=== PATIENT | female | born 1950 | race American Indian/Alaskan Native ===

== ENCOUNTER 2019-01-31 22:18 | Emergency (ER) | payer MEDICARE ==
[2019-02-01] MEDS ORDERED: dexAMETHasone 20 MG/5 ML VIAL IM ONE (00:04)
[2019-02-01] MEDS ORDERED: diphenhydrAMINE 25 MG CAP PO ONE (00:04)
[2019-02-01] MEDS ORDERED: FAMOTIDINE 20 MG TAB PO ONE (00:04)
--- NOTE | 2019-02-01 00:10 | Emergency Department Report ---
HPI - General Chief Complaint: Allergic Reaction Time Seen by Provider: 02/01/19 00:03 - HPI HPI: Ms. Fernandez is a 68-year-old female with history of hypertension allergies lisinopril who presents for right upper lip swelling 6 hours P1 week ago for angioedema related to lisinopril patient states she stopped lisinopril now on verapamil and hydrochlorothiazide states she takes medications as prescribed however when outside today and lip started to swell swelling rule out right upper lobe only ther3 is no shortness of breath no stridor no wheezing no fever no chills no hives no palpitations plan treat for allergic reaction ED Past Medical Hx - Past Medical History Previous Medical History?: Yes Hx Hypertension: Yes - Surgical History Past Surgical History?: No - Social History Smoking Status: Never Smoker Substance Use Type: None - Medications Home Medications: Home Medications Medication Instructions Recorded Confirmed Last Taken Type EPINEPHrine [Epipen 2-Antonio] 0.3 mg IM PRN PRN #1 kit 02/01/19 Unknown Rx Famotidine [Pepcid] 20 mg PO BID 7 Days #14 tablet 02/01/19 Unknown Rx diphenhydrAMINE [Benadryl CAP] 25 mg PO Q6HR PRN 7 Days #30 02/01/19 Unknown Rx capsule predniSONE [Deltasone] 40 mg PO QDAY 5 Days #10 tab 02/01/19 Unknown Rx ED Review of Systems ROS: Stated complaint: ALLERGIC REACTION Other details as noted in HPI Constitutional: denies: chills, fever Eyes: denies: eye pain, eye discharge, vision change ENT: other (right upper lip swelling ) Respiratory: denies: cough, shortness of breath, wheezing Cardiovascular: denies: chest pain, palpitations Endocrine: no symptoms reported Gastrointestinal: denies: abdominal pain, nausea, vomiting, diarrhea Genitourinary: denies: urgency, dysuria, discharge Musculoskeletal: denies: back pain, joint swelling, arthralgia Skin: denies: rash, lesions Neurological: denies: headache, weakness, numbness, paresthesias, confusion, vertigo Psychiatric: denies: anxiety, depression Hematological/Lymphatic: denies: easy bleeding, easy bruising Physical Exam - Physical Exam Vital Signs: Vital Signs 01/31/19 22:34 Temperature 99.3 F Pulse Rate 103 H Respiratory 22 Rate Blood Pressure 142/99 O2 Sat by Pulse 99 Oximetry General: Patient appears well and nontoxic respirations even and unlabored patient in no acute distress Physical Exam: ENT TMs are normal no erythema no swelling management patent no swelling pharynx is clear no lesions no exudate uvula midline no stridor no swelling no wheezing mild right upper lip swelling is no dental caries noted no lacerations no symptoms of trauma airway is patent lung sounds are clear bilaterally all lobes heart sounds normal no rub no gallop no bruit ED Course Vital Signs 01/31/19 22:34 Temperature 99.3 F Pulse Rate 103 H Respiratory 22 Rate Blood Pressure 142/99 O2 Sat by Pulse 99 Oximetry ED Medical Decision Making - Medical Decision Making pt advises symptoms are improved tolerating po intake there is no sob no wheezing no stridor, dizziness no n/v , plan decadron, pepcid, benadryl, epipen and epipen teaching, follow up with pcp in 2-3 days return to ed if symptoms worsen. Critical care attestation.: If time is entered above; I have spent that time in minutes in the direct care of this critically ill patient, excluding procedure time. ED Disposition Clinical Impression: Allergic reaction Qualifiers: Encounter type: initial encounter Qualified Code(s): T78.40XA - Allergy, unspec ified, initial encounter Disposition: TO HOME OR SELFCARE Is pt being admited?: No Does the pt Need Aspirin: No Condition: Stable Instructions: Allergies (ED), Anaphylaxis (ED), Epinephrine (Injection) Prescriptions: diphenhydrAMINE [Benadryl CAP] 25 mg PO Q6HR PRN 7 Days #30 capsule PRN Reason: allergies predniSONE [Deltasone] 40 mg PO QDAY 5 Days #10 tab EPINEPHrine [Epipen 2-Antonio] 0.3 mg IM PRN PRN #1 kit PRN Reason: severe allergy symptoms Famotidine [Pepcid] 20 mg PO BID 7 Days #14 tablet Referrals: [facility] [Outside] - 3-5 Days Forms: Work/School Release Form(ED) Time of Disposition: 02:03
[2019-02-01 06:06] VITALS: BP 132/86
== END 2019-02-01 02:15 | disposition home or self-care (01) ==
LOC: ED 22:18
DX: Z79.899 Other long term (current) drug therapy (principal); X58.XXXA Exposure to other specified factors, initial encounter
CPT/HCPCS: 96372; 99282; J1100

== ENCOUNTER 2021-01-22 17:58 | Emergency (ER) | payer MEDICARE ==
--- NOTE | 2021-01-22 18:40 | Emergency Department Report ---
ED Palpitations HPI - General Chief Complaint: Arrhythmia/Palpitations Stated Complaint: ATRIAL FIB/RVR Time Seen by Provider: 01/22/21 18:34 Source: patient, EMS Mode of arrival: Stretcher Limitations: No Limitations - History of Present Illness Initial Comments: 70-year-old female, history of hypertension, diabetes, presents to ED with palpitations. Patient states 1 month ago she began experiencing palpitations. Patient states she was referred to [facility] and was given a Holter monitor. Patient states she followed up with [facility] on 01/03/2021. She was told that they did not find anything with monitoring, but patient was given a prescription for metoprolol 50 mg twice daily. Today, patient states she began to feel palpitations with associated nausea and lightheadedness. Patient states she took her p.m. dose of metoprolol and called 911. EMS reports patient in A. fib with RVR. States heart rate was as high as 175. Patient states she was never told that she had atrial fibrillation by her hired hand. Patient reports her work-up by hired hand included a stress test and echo, which were both normal. MD Complaint: "heart racing", palpitations -: This afternoon Context: occured during rest Associated Symptoms: near-syncope, nausea/vomiting - Related Data Home Medications Medication Instructions Recorded Confirmed Last Taken Albuterol 0.63% NEBS 2 puff 01/22/21 Unknown Triny Allergy 60 mg 01/22/21 Unknown Aspirin 81 mg 01/22/21 Unknown Fluticasone [Flonase] 1 spray NS QDAY 01/22/21 01/22/21 Unknown Hydrochlorothiazide 25 mg 01/22/21 Unknown Metoprolol Tartrate 50 mg 01/22/21 Unknown Procardia Xl 60 mg 01/22/21 Unknown glipiZIDE 5 mg 01/22/21 Unknown Previous Rx's Medication Instructions Recorded Last Taken Type Apixaban [Eliquis] 5 mg PO BID #60 tablet 01/22/21 Unknown Rx Allergies Allergy/AdvReac Type Severity Reaction Status Date / Time No Known Allergies Allergy Verified 01/31/19 22:30 ED Review of Systems ROS: Stated complaint: ATRIAL FIB/RVR Other details as noted in HPI Comment: All other systems reviewed and negative Cardiovascular: palpitations Gastrointestinal: nausea ED Past Medical Hx - Past Medical History Hx Hypertension: Yes - Social History Smoking Status: Never Smoker Substance Use Type: None - Medications Home Medications: Home Medications Medication Instructions Recorded Confirmed Last Taken Type Albuterol 0.63% NEBS 2 puff 01/22/21 Unknown History Triny Allergy 60 mg 01/22/21 Unknown History Apixaban [Eliquis] 5 mg PO BID #60 tablet 01/22/21 Unknown Rx Aspirin 81 mg 01/22/21 Unknown History Fluticasone [Flonase] 1 spray NS QDAY 01/22/21 01/22/21 Unknown History Hydrochlorothiazide 25 mg 01/22/21 Unknown History Metoprolol Tartrate 50 mg 01/22/21 Unknown History Procardia Xl 60 mg 01/22/21 Unknown History glipiZIDE 5 mg 01/22/21 Unknown History ED Physical Exam - General Limitations: No Limitations General appearance: alert, in no apparent distress - Head Head exam: Present: atraumatic, normocephalic - Eye Eye exam: Present: normal appearance, EOMI - ENT ENT exam: Present: mucous membranes moist - Neck Neck exam: Present: normal inspection - Respiratory Respiratory exam: Present: normal lung sounds bilaterally. Absent: respiratory distress - Cardiovascular Cardiovascular Exam: Present: regular rate, irregular rhythm - GI/Abdominal GI/Abdominal exam: Present: soft. Absent: distended, tenderness - Extremities Exam Extremities exam: Present: normal inspection - Neurological Exam Neurological exam: Present: alert, oriented X3 - Psychiatric Psychiatric exam: Present: normal affect, normal mood - Skin Skin exam: Present: warm, dry, intact, normal color ED Course Vital Signs 01/22/21 01/22/21 01/22/21 18:05 18:07 18:16 Temperature 99.1 F Pulse Rate 94 H 120 H 94 H Respiratory 20 16 Rate Blood Pressure 148/88 121/92 [Left] O2 Sat by Pulse 99 99 Oximetry 01/22/21 01/22/21 01/22/21 18:19 18:34 19:37 Temperature 99.1 F 98.5 F Pulse Rate 103 H Respiratory 16 15 Rate Blood Pressure 122/70 [Left] O2 Sat by Pulse 99 97 Oximetry 01/22/21 01/22/21 01/22/21 22:00 22:04 22:59 Temperature 99.1 F Pulse Rate 70 67 Respiratory 12 16 Rate Blood Pressure 103/68 131/78 [Left] O2 Sat by Pulse 100 100 99 Oximetry 01/23/21 00:11 Temperature 98.2 F Pulse Rate 64 Respiratory 15 Rate Blood Pressure 131/77 [Left] O2 Sat by Pulse 99 Oximetry - Consultations Consultation #1: 01/22/21 18:[address] Raygoza, cardiology on-call for [facility]. States if heart rate remains below 100 after observation in the ED, okay to discharge with prescription for Eliquis. Increase beta-ryne dose. Patient to follow-up in office. ED Medical Decision Making - Lab Data Result diagrams: 01/22/21 18:40 01/22/21 18:40 - EKG Data -: EKG Interpreted by Ne EKG shows normal: axis, QRS complexes, ST-T waves Rate: normal - EKG Data Interpretation: no acute changes, other (Atrial fibrillation) - Radiology Data Radiology results: report reviewed, image reviewed - Medical Decision Making 70-year-old female with new onset A. fib. Patient initially in RVR, however heart rate did improve without intervention. Possible heart rate improvement secondary to patient taking her 5 PM dose of her metoprolol. EKG shows A. fib, no ST changes. Troponin negative x2. Chest x-ray unremarkable. I spoke with hired hand, Dr. Raygoza, with [facility]. I informed him that patient reports that she recently had a work-up for palpitations within the past month, which included Holter monitoring, stress test, and echo. Patient reported that this testing was normal, and was placed on metoprolol 50 [address]. Raygoza, if heart rate remains below 100 during ED observation okay to dischar ge home on Eliquis and advised to follow-up in the office. He also advised increase in patient's metoprolol, however patient's heart rate sometimes in the 50s, do not feel comfortable increasing her dosage. We will leave that to the hired hand when she visits in office. Patient observed in the ED for 6 hours. There is a documented heart rate of 120, chest after patient arrived. However, patient has mostly had a normal heart rate, between 60 and 90. Patient given 1 dose of Eliquis here in the ED. Will discharge at this time with prescription for Eliquis. Vital signs are currently BP 134/98, HR 60. Patient advised to follow-up with cardiology tomorrow. Return precautions given. - Differential Diagnosis Arrhythmia, ACS, CHF Critical care attestation.: If time is entered above; I have spent that time in minutes in the direct care of this critically ill patient, excluding procedure time. ED Disposition Clinical Impression: New onset atrial fibrillation Disposition: HOME / SELF CARE / HOMELESS Is pt being admited?: No Condition: Stable Instructions: Atrial Fibrillation Prescriptions: Apixaban [Eliquis] 5 mg PO BID #60 tablet Ref[facility]: [email or web address] [Provider Group] - 01/23/21 AP RODRIGUEZ MD [Staff Physician] - 01/23/21 Time of Disposition: 23:51
--- NOTE | 2021-01-22 19:12 | XRay Report ---
CHEST 1 VIEW 01/22/2021 6:05 PM INDICATION / CLINICAL INFORMATION: palpitations. COMPARISON: None available. FINDINGS: SUPPORT DEVICES: None. HEART / MEDIASTINUM: No significant abnormality. LUNGS / PLEURA: No significant pulmonary or pleural abnormality. No pneumothorax. ADDITIONAL FINDINGS: No significant additional findings. IMPRESSION: 1. No acute findings. Signer Name: Holden Angel MD Signed: 01/22/2021 7:07 PM Workstation Name: [id number]
[2021-01-22 19:14] LABS: Basophils % (Auto) 0.4 % (0.0-1.8); Eosinophils # (Auto) 0.1 K/mm3 (0.0-0.4); Eosinophils % (Auto) 0.9 % (0.0-4.3); Hematocrit 40.3 % (30.3-42.9); Hemoglobin 12.8 gm/dl (10.1-14.3); Lymphocytes # (Auto) 2.5 K/mm3 (1.2-5.4); Mean Corpuscular HGB Conc 32 % (30-34); Mean Corpuscular Volume 88 fl (79-97); Monocytes # (Auto) 0.4 K/mm3 (0.0-0.8); Platelet Count 325 K/mm3 (140-440); Red Blood Count 4.61 M/mm3 (3.65-5.03); Red Cell Distribution Width 13.6 % (13.2-15.2)
[2021-01-22 19:39] LABS: INR 0.9 (0.87-1.13); Partial Thromboplastin Time 25.9 Sec. (24.2-36.6)
[2021-01-22 20:24] LABS: Blood Urea Nitrogen 11 mg/dL (7-17); Calcium 9.7 mg/dL (8.4-10.2); Hemolysis Index 26
[2021-01-22 20:27] LABS: BUN/Creatinine Ratio 16
[2021-01-22] MEDS ORDERED: APIXABAN 5 MG TAB PO NR (22:54)
[2021-01-23 00:12] VITALS: BP 131/77
--- NOTE | 2021-01-27 14:22 | Electrocardiograph Report ---
[facility] Test Date: 2021-01-22 Test Time: 18:08:31 Pat Name: CHAD GARRIDO Department: Room: Gender: F Sports Journalist: LAURIE : 1950 Requested By: MAHENDRA WILDER Order Number: [id number] Reading MD: Aura Willis Measurements Intervals [place] Rate: 94 P: MS: QRS: 17 QRSD: 83 T: 49 QT: 361 QTc: 452 Interpretive Statements Atrial fibrillation Nonspecific ST changes No previous ECG available for comparison Electronically Signed On 01-27-2021 14:21:37 EDT by Aura Willis
== END 2021-01-23 00:28 | disposition home or self-care (01) ==
LOC: ED 17:58
DX: I48.91 Unspecified atrial fibrillation (principal); I10 Essential (primary) hypertension
CPT/HCPCS: 36415; 71045; 80048; 82962; 84484; 85025; 85610; 85730; 93005; 99284

== ENCOUNTER 2021-01-23 23:01 | Inpatient (IN) | payer MEDICARE ==
[2021-01-24] MEDS ORDERED: ASPIRIN 325 MG TAB PO ONE (01:21)
--- NOTE | 2021-01-24 01:32 | Event Note ---
ED Screening Note Date of service: 01/24/21 Time: 01:30 ED Screening Note: The patient is a 70-year-old -[place] female with a history of A. fib, hypertension and [id number] diabetes who presents to the ED with complaint of acute onset persistent palpitations, chest pressure and shortness of breath for the last 12 hours. Patient was initially evaluated in this ED for similar symptoms 24 hours ago and was discharged home. Patient states that she has a scheduled appointment with a mobile solutions architect at [facility] on 03 February 2021 but because of the persistent symptoms of palpitations she decided come to the ED for reevaluation. Patient denies dizziness, syncope, fall, diaphoresis, nausea and vomiting, cough, headache, fever and chills or abdominal pain and diarrhea. This initial assessment/diagnostic orders/clinical plan/treatment(s) is/are subject to change based on patients health status, clinical progression and re- assessment by fellow clinical providers in the ED. Further treatment and workup at subsequent clinical providers discretion. Patient/guardian urged not to elope from the ED as their condition may be serious if not clinically assessed and managed. Initial orders include: CBC, CMP, EKG, chest x-ray, troponin,
--- NOTE | 2021-01-24 01:51 | XRay Report ---
CHEST 1 VIEW INDICATION / CLINICAL INFORMATION: chest pain, palpitations STUDY TIME: 142 COMPARISON: 01/22/2021 FINDINGS: SUPPORT DEVICES: None HEART / MEDIASTINUM: Mild cardiomegaly is again seen LUNGS / PLEURA: No significant acute pulmonary or pleural abnormality. No pneumothorax. ADDITIONAL FINDINGS: No significant additional findings. IMPRESSION: No significant acute abnormality Signer Name: Isidoro Moreno MD Signed: 01/24/2021 1:47 AM Workstation Name: [id number]
[2021-01-24 01:59] LABS: Basophils # (Auto) 0.1 K/mm3 (0.0-0.1); Basophils % (Auto) 0.6 % (0.0-1.8); Eosinophils # (Auto) 0.1 K/mm3 (0.0-0.4); Eosinophils % (Auto) 1.2 % (0.0-4.3); Hematocrit 39.1 % (30.3-42.9); Hemoglobin 12.8 gm/dl (10.1-14.3); Lymphocytes % (Auto) 46.1 % (13.4-35.0); Mean Corpuscular HGB Conc 33 % (30-34); Mean Corpuscular Volume 85 fl (79-97); Monocytes # (Auto) 0.5 K/mm3 (0.0-0.8); Monocytes % (Auto) 6.1 % (0.0-7.3); Platelet Count 364 K/mm3 (140-440); Red Cell Distribution Width 13.2 % (13.2-15.2)
[2021-01-24 02:26] LABS: Alanine Aminotransferase 21 units/L (7-56); Albumin 4.6 g/dL (3.9-5); Blood Urea Nitrogen 13 mg/dL (7-17); Calcium 10.2 mg/dL (8.4-10.2); Hemolysis Index 3
[2021-01-24 02:30] LABS: BUN/Creatinine Ratio 19
--- NOTE | 2021-01-24 02:33 | Emergency Department Report ---
ED Chest Pain HPI - General Chief Complaint: High BP Stated Complaint: HBP PUI?: No Time Seen by Provider: 01/24/21 02:29 Source: patient Mode of arrival: Ambulatory Limitations: No Limitations - History of Present Illness Initial Comments: Patient is a 70-year-old female who presents emergency room with complaints of chest pain, shortness of breath and palpitations. Patient also complains of her blood pressure going up. Patient states she was recently diagnosed with A. fib and placed on metoprolol, Procardia and Eliquis. Patient states she is taking all of her medications. Patient states that her blood pressure continues to go up and her palpitations are becoming more frequent. Patient states that her chest pain is better with rest and worse with exertion. Patient dates her shortness of breath better with rest and worse with exertion. Patient states she is just not feeling right. Patient denies recent travel. Patient denies recent international travel. Patient denies exposure to the novel coronavirus. Patient denies sick contacts. Patient denies fever and chills. Patient denies cough. Patient denies diarrhea. Patient denies coming in contact with anybody with symptoms of the novel coronavirus. MD Complaint: chest pain -: Sudden Onset: during rest Pain Location: substernal, left chest Pain Radiation: none Severity scale (0 -10): 5 Quality: pressure Improves With: rest Worsens With: exertion re: dyspnea. denies: nausea, vomting, diaphoresis Other Symptoms: palpitations. denies: cough, fever, syncope, rash, acid taste in mouth, leg swelling, burping Aspirin use within the Past 7 Days: (1) Yes - Related Data On Oral Contraceptives: No Home Medications Medication Instructions Recorded Confirmed Last Taken Albuterol 0.63% NEBS 2 puff 01/22/21 Unknown Triny Allergy 60 mg 01/22/21 Unknown Aspirin 81 mg 01/22/21 Unknown Fluticasone [Flonase] 1 spray NS QDAY 01/22/21 01/22/21 Unknown Hydrochlorothiazide 25 mg 01/22/21 Unknown Metoprolol Tartrate 50 mg 01/22/21 Unknown Procardia Xl 60 mg 01/22/21 Unknown glipiZIDE 5 mg 01/22/21 Unknown Previous Rx's Medication Instructions Recorded Last Taken Type Apixaban [Eliquis] 5 mg PO BID #60 tablet 01/22/21 Unknown Rx Allergies Allergy/AdvReac Type Severity Reaction Status Date / Time No Known Allergies Allergy Verified 01/31/19 22:30 Heart Score - HEART Score History: Moderately suspicious EKG: Non-specific Age: > 65 Risk factors: > 3 risk factors or hx of atherosclerotic disease Troponin: < normal limit HEART Score: 6 - EKG Read Time Time EKG Completed: 03:12 EKG Read Time: 03:15 ED Review of Systems ROS: Stated complaint: HBP Other details as noted in HPI Constitutional: denies: chills, fever Eyes: denies: eye pain, eye discharge, vision change ENT: denies: ear pain, throat pain Respiratory: see HPI, shortness of breath. denies: cough, wheezing Cardiovascular: as per HPI, chest pain, palpitations Endocrine: no symptoms reported Gastrointestinal: denies: abdominal pain, nausea, diarrhea Genitourinary: denies: urgency, dysuria, discharge Musculoskeletal: denies: back pain, joint swelling, arthralgia Skin: denies: rash, lesions Neurological: denies: headache, weakness, paresthesias Psychiatric: denies: anxiety, depression Hematological/Lymphatic: denies: easy bleeding, easy bruising ED Past Medical Hx - Past Medical History Previous Medical History?: Yes Hx Hypertension: Yes Hx Diabetes: Yes - Surgical History Past Surgical History?: No - Family History Family history: no significant - Social History Smoking Status: Never Smoker Substance Use Type: None - Medications Home Medications: Home Medications Medication Instructions Recorded Confirmed Last Taken Type Albuterol 0.63% NEBS 2 puff 01/22/21 Unknown History Triny Allergy 60 mg 01/22/21 Unknown History Apixaban [Eliquis] 5 mg PO BID #60 tablet 01/22/21 Unknown Rx Aspirin 81 mg 01/22/21 Unknown History Fluticasone [Flonase] 1 spray NS QDAY 01/22/21 01/22/21 Unknown History Hydrochlorothiazide 25 mg 01/22/21 Unknown History Metoprolol Tartrate 50 mg 01/22/21 Unknown History Procardia Xl 60 mg 01/22/21 Unknown History glipiZIDE 5 mg 01/22/21 Unknown History ED Physical Exam - General Limitations: No Limitations General appearance: alert, in no apparent distress - Head Head exam: Present: atraumatic, normocephalic - Eye Eye exam: Present: normal appearance - ENT ENT exam: Present: mucous membranes moist - Neck Neck exam: Present: normal inspection - Respiratory Respiratory exam: Present: normal lung sounds bilaterally. Absent: respiratory distress, wheezes, rales - Cardiovascular Cardiovascular Exam: Present: regular rate, normal rhythm, normal heart sounds. Absent: systolic murmur, diastolic murmur, rubs, gallop - GI/Abdominal GI/Abdominal exam: Present: soft, normal bowel sounds - Extremities Exam Extremities exam: Present: normal inspection - Back Exam Back exam: Present: normal inspection - Neurological Exam Neurological exam: Present: alert, oriented X3 - Psychiatric Psychiatric exam: Present: normal affect, normal mood - Skin Skin exam: Present: warm, dry, intact, normal color. Absent: rash ED Course Vital Signs 01/23/21 01/24/21 01/24/21 23:19 02:38 02:46 Temperature 99.3 F Pulse Rate 79 71 72 Respiratory 18 12 13 Rate Blood Pressure 169/113 O2 Sat by Pulse 96 100 99 Oximetry 01/24/21 01/24/21 01/24/21 03:00 03:16 03:30 Temperature Pulse Rate 61 60 59 L Respiratory 13 20 11 L Rate Blood Pressure 142/93 142/93 142/93 O2 Sat by Pulse 100 100 100 Oximetry 01/24/21 01/24/21 01/24/21 03:46 04:00 04:16 Temperature Pulse Rate 66 69 68 Respiratory 11 L 12 11 L Rate Blood Pressure 142/93 146/73 146/73 O2 Sat by Pulse 99 99 99 Oximetry 01/24/21 04:30 Temperature Pulse Rate 75 Respiratory 13 Rate Blood Pressure 146/73 O2 Sat by Pulse 100 Oximetry - Reevaluation(s) Reevaluation #1: I discussed all results with patient. I discussed plan of care with patient. Patient agrees with plan of care and admission. Patient to be admitted to the hospitalist service. 01/24/21 04:41 - Consultations Consultation #1: Hospitalist consulted for admission. Hospitalist to admit patient. 01/24/21 04:41 BRITTNEY score - Brittney Score Age > 65: (1) Yes Aspirin use within the Past 7 Days: (1) Yes 3 or more CAD Risk Factors: (1) Yes 2 or more Angina events in past 24 hrs: (0) No Known CAD with more than 50% Stenosis: (0) No Elevated Cardiac Markers: (0) No ST Deviation Greater than 0.5mm: (0) No BRITTNEY Score: 3 ED Medical Decision Making - Lab Data Result diagrams: 01/24/21 01:29 01/24/21 01:29 - EKG Data -: EKG Interpreted by Me EKG shows normal: axis, intervals, QRS complexes, ST-T waves Rate: normal - EKG Data Interpretation: other (A. fib) - Radiology Data Radiology results: report reviewed, image reviewed interpreted by me: Chest x-ray: No pneumonia, no pneumothorax, no foreign body, no osseous findings, no acute findings CHEST 1 VIEW INDICATION / CLINICAL INFORMATION: chest pain, palpitations STUDY TIME: 142 COMPARISON: 01/22/2021 FINDINGS: SUPPORT DEVICES: None HEART / MEDIASTINUM: Mild cardiomegaly is again seen LUNGS / PLEURA: No significant acute pulmonary or pleural abnormality. No pneumothorax. ADDITIONAL FINDINGS: No significant additional findings. IMPRESSION: No significant acute abnormality - Medical Decision Making Patient is a 70-year-old female who presents emergency room with complaints of chest pain, shortness of breath and palpitations. Patient states that overall he does not feel well. Patient had a recent diagnosis of A. fib and was placed on metoprolol Eliquis and Procardia. Patient symptoms are worsening so the patient came emergency room for evaluation. Patient had labs done which were essentially unremarkable. Patient had a chest x-ray which was negative for acute findings. Patient's x-rays show cardiomegaly. I personally reviewed the chest x-ray. Patient had EKG done which showed A. fib but no other abnorm alities. Personally reviewed the EKG. Patient admitted to the hospitalist service for further evaluation treatment. Critical care time documented due to the multiple reassessments, prolonged time at the bedside, interpretation of diagnostics and labs. - Differential Diagnosis ACS, chest pain, shortness of breath, palpitations Critical Care Time: Yes Critical care time in (mins) excluding proc time.: 35 Critical care attestation.: If time is entered above; I have spent that time in minutes in the direct care of this critically ill patient, excluding procedure time. Critical Care Time: 35 minutes ED Disposition Clinical Impression: Palpitations, Shortness of breath Chest pain Qualifiers: Chest pain type: unspecified Qualified Code(s): R07.9 - Chest pain, unspecified A-fib Qualifiers: Atrial fibrillation type: unspecified Qualified Code(s): I48.91 - Unspecified atrial fibrillation Disposition: 09 ADMITTED INPATIENT Is pt being admited?: Yes Does the pt Need Aspirin: No Condition: Critical Time of Disposition: 04:43
[2021-01-24] MEDS ORDERED: DEXTROSE 50% IN WATER (25GM) 50 ML SYRINGE IV PRN ×2 (07:40→09:30)
[2021-01-24] MEDS ORDERED: ACETAMINOPHEN 325 MG TAB PO PRN ×2 (07:40→09:30)
--- NOTE | 2021-01-24 07:52 | History and Physical Report ---
History of Present Illness Date of examination: 01/24/21 Date of admission: 01/24/21 04:43 Chief complaint: Chest pain History of present illness: 70-year-old -[place] female with known history of hypertension and diabetes mellitus presents to the emergency room today complaining of chest pain, shortness of breath and palpitations which has been ongoing for the past few hours. Patient was recently diagnosed with A. fib and had been placed on metoprolol, Procardia and Eliquis and indicates she has been compliant with her medications. Symptoms are said to be worse on exertion and gets better upon resting. She follows up with [facility]. Hair Salon Manager is Dr. Gunderson. She denies any fever or chills, no nausea or vomiting and no abdominal pain. Nicholas gonzalez denies any sick contacts and no recent travel. Denies any contact with anyone with COVID-19. Patient has not been fully vaccinated against COVID-19. Work-up in the emergency room today, EKG reveals atrial fibrillation. Chest x-ray shows no significant findings Labs: Troponins were negative Patient admitted with chest pain evaluation. Past History Past Medical History: diabetes, hypertension Past Surgical History: No surgical history Social history: no significant social history Family history: no significant family history Medications and Allergies Allergies Allergy/AdvReac Type Severity Reaction Status Date / Time No Known Allergies Allergy Verified 01/31/19 22:30 Home Medications Medication Instructions Recorded Confirmed Last Taken Type Albuterol 0.63% NEBS 2 puff 01/22/21 Unknown History Triny Allergy 60 mg 01/22/21 Unknown History Apixaban [Eliquis] 5 mg PO BID #60 tablet 01/22/21 Unknown Rx Aspirin 81 mg 01/22/21 Unknown History Fluticasone [Flonase] 1 spray NS QDAY 01/22/21 01/22/21 Unknown History Hydrochlorothiazide 25 mg 01/22/21 Unknown History Metoprolol Tartrate 50 mg 01/22/21 Unknown History Procardia Xl 60 mg 01/22/21 Unknown History glipiZIDE 5 mg 01/22/21 Unknown History Active Meds: Active Medications Acetaminophen (Acetaminophen 325 Mg Tab) 650 mg PO Q4H PRN PRN Reason: Pain MILD(1-3)/Fever >100.5/PATHAK Acetaminophen (Acetaminophen 325 Mg Tab) 650 mg PO Q6H PRN PRN Reason: Pain, Mild (1-3) Aspirin (Aspirin Ec 325 Mg Tab) 325 mg PO QDAY ETHEL Dextrose (Dextrose 50% In Water (25gm) 50 Ml Syringe) 50 ml IV Q30MIN PRN; Protocol PRN Reason: Hypoglycemia Dextrose (Dextrose 50% In Water (25gm) 50 Ml Syringe) 50 ml IV Q30MIN PRN; Protocol PRN Reason: Hypoglycemia Heparin Sodium (Porcine) (Heparin 5,000 Unit/1 Ml Vial) 5,000 unit SUB-Q Q8HR ETHEL Insulin Human Lispro (Insulin Lispro 100 Unit/Ml) 0 unit SUB-Q ACHS ETHEL; Protocol Magnesium Hydroxide (Magnesium Hydroxide (Mom) Oral Liqd Udc) 30 ml PO Q4H PRN PRN Reason: Constipation Morphine Sulfate (Morphine 2 Mg/1 Ml Inj) 2 mg IV Q4H PRN PRN Reason: Pain, Moderate (4-6) Morphine Sulfate (Morphine 4 Mg/1 Ml Inj) 4 mg IV Q4H PRN PRN Reason: Pain , Severe (7-10) Nitroglycerin (Nitroglycerin 0.4 Mg Tab Subl) 0.4 mg SL Q5M PRN PRN Reason: Chest Pain Ondansetron HCl (Ondansetron 4 Mg/2 Ml Inj) 4 mg IV Q8H PRN PRN Reason: Nausea And Vomiting Sodium Chloride (Sodium Chloride 0.9% 10 Ml Flush Syringe) 10 ml IV BID ETHEL Sodium Chloride (Sodium Chloride 0.9% 10 Ml Flush Syringe) 10 ml IV PRN PRN PRN Reason: LINE FLUSH Sodium Chloride (Sodium Chloride 0.9% 10 Ml Flush Syringe) 10 ml IV PRN PRN PRN Reason: LINE FLUSH Tramadol HCl (Tramadol 50 Mg Tab) 50 mg PO Q6H PRN PRN Reason: Pain, Moderate (4-6) Review of Systems Constitutional: no fever, no chills Ears, nose, mouth and throat: no nasal congestion, no sore throat Cardiovascular: chest pain, palpitations, no orthopnea Respiratory: shortness of breath, no cough Gastrointestinal: no abdominal pain, no nausea, no vomiting, no diarrhea Genitourinary Female: no pelvic pain, no flank pain, no dysuria, no hematuria Musculoskeletal: no neck pain, no low back pain Integumentary: no rash, no pruritis Neurological: no headaches, no confusion Psychiatric: no anxiety, no depression Endocrine: no polyphagia, no polydipsia, no polyuria, no nocturia Exam - Constitutional Vitals: Temp Pulse Resp BP Pulse Ox 99.3 F 75 13 146/73 100 01/23/21 23:19 01/24/21 04:30 01/24/21 04:30 01/24/21 04:30 01/24/21 04:30 General appearance: Present: no acute distress, well-nourished - EENT Eyes: Present: PERRL, EOM intact. Absent: scleral icterus ENT: hearing intact, clear oral mucosa, dentition normal - Neck Neck: Present: supple, normal ROM - Respiratory Respiratory effort: normal Respiratory: bilateral: CTA - Cardiovascular Rhythm: irregularly irregular Heart Sounds: Present: S1 & S2. Absent: gallop, systolic murmur, diastolic m urmur, rub, click - Extremities Extremities: no ischemia, pulses intact, pulses symmetrical, No edema, normal temperature, Full ROM Peripheral Pulses: within normal limits - Abdominal General gastrointestinal: Present: soft, non-tender, non-distended, normal bowel sounds. Absent: mass - Integumentary Integumentary: Present: clear, warm, dry, normal turgor. Absent: rash - Musculoskeletal Musculoskeletal: strength equal bilaterally - Psychiatric Psychiatric: appropriate mood/affect, intact judgment & insight, memory intact, cooperative - Neurologic Neurologic: CNII-XII intact, no focal deficits, moves all extremities HEART Score - HEART Score History: Slightly suspicious EKG: Non-specific Age: > 65 Risk factors: > 3 risk factors or hx of atherosclerotic disease Troponin: Troponin T < 0.010 ng/mL (0.00-0.029) 01/24/21 05:00 Troponin: < normal limit HEART Score: 5 Results - Labs CBC & Chem 7: 01/24/21 01:29 01/24/21 01:29 Labs: Abnormal lab results 01/24/21 01/24/21 Range/Units 01: 01:29 Lymph % (Auto) 46.1 H (13.4-35.0) % Glucose 124 H (65-100) mg/dL Assessment and Plan - Patient Problems (1) Chest pain Current Visit: Yes Status: Acute Qualifiers: Chest pain type: unspecified Qualified Code(s): R07.9 - Chest pain, unspecified Plan to address problem: Patient admitted and placed on telemetry. Chest pain probably is secondary to the palpitations. We will check serial cardiac enzymes. We will place on daily aspirin. Will await further evaluation by cardiology. (2) A-fib Current Visit: Yes Status: Acute Qualifiers: Atrial fibrillation type: unspecified Qualified Code(s): I48.91 - Unspecified atrial fibrillation Plan to address problem: Patient recently diagnosed with A. fib. Patient currently on beta-ryne and anticoagulation with Eliquis. Await further evaluation by plastic straightening roll operator. (3) Diabetes mellitus Current Visit: Yes Status: Acute Plan to address problem: We will monitor Accu-Cheks closely. (4) DVT prophylaxis Current Visit: Yes Status: Acute Plan to address problem: Patient currently on anticoagulation with Eliquis. (5) Full code status Current Visit: Yes Status: Acute Plan to address problem: Patient is full code.
[2021-01-24 08:10] LABS: Basophils % (Auto) 0.8 % (0.0-1.8); Eosinophils # (Auto) 0.1 K/mm3 (0.0-0.4); Eosinophils % (Auto) 1.2 % (0.0-4.3); Hematocrit 38.8 % (30.3-42.9); Hemoglobin 12.8 gm/dl (10.1-14.3); Lymphocytes # (Auto) 2.5 K/mm3 (1.2-5.4); Lymphocytes % (Auto) 38.8 % (13.4-35.0); Mean Corpuscular HGB Conc 33 % (30-34); Mean Corpuscular Volume 86 fl (79-97); Monocytes # (Auto) 0.4 K/mm3 (0.0-0.8); Platelet Count 318 K/mm3 (140-440); Red Blood Count 4.54 M/mm3 (3.65-5.03); Red Cell Distribution Width 13.3 % (13.2-15.2)
[2021-01-24 08:27] LABS: Blood Urea Nitrogen 12 mg/dL (7-17); Calcium 9.8 mg/dL (8.4-10.2); Hemolysis Index 5
[2021-01-24 08:30] LABS: BUN/Creatinine Ratio 20
[2021-01-24] MEDS ORDERED: MAGNESIUM HYDROXIDE (MOM) ORAL LIQD UDC PO PRN (09:00)
[2021-01-24] MEDS ORDERED: ONDANSETRON 4 MG/2 ML INJ IV PRN (09:00)
[2021-01-24] MEDS ORDERED: MORPHINE 4 MG/1 ML INJ IV PRN (09:30)
[2021-01-24] MEDS ORDERED: NITROGLYCERIN 0.4 MG TAB SUBL SL PRN (09:30)
[2021-01-24] MEDS ORDERED: MORPHINE 2 MG/1 ML INJ IV PRN (09:30)
[2021-01-24] MEDS ORDERED: NON-FORMULARY EACH (Apixaban 5 MG Tablet) PO SCH (10:00)
[2021-01-24] MEDS ORDERED: traMADol 50 MG TAB PO PRN (10:00)
[2021-01-24] MEDS ORDERED: AMIODARONE 150 MG in DEXTROSE 5% IN WATER 100 ML IV ONE (10:17)
--- NOTE | 2021-01-24 10:23 | Consultation ---
History of Present Illness Consult date: 01/24/21 Consult reason: atrial fibrillation History of present illness: The patient is a 70-year-old woman who has undergone extensive outpatient cardiac work-up in recent weeks for intermittent palpitations. She had a thallium stress test, echocardiogram and event monitor all of which were negative. She was placed on metoprolol by her outpatient reservation clerk. However, her symptoms of intermittent palpitations persisted culminating in 2 emergency room visits over the last 48 hours. On the current visit, she was found to have atrial fibrillation, initially with a well-controlled ventricular rate, currently heart rate is 130s. The twelve-lead EKG shows no acute ischemic changes. The patient otherwise has no chest pain, no unusual shortness of breath, no edema and has not suffered syncope. Chest x-ray on this presentation shows a normal-sized cardiac silhouette and clear lungs. Past History Past Medical History: diabetes, hypertension Past Surgical History: No surgical history Social history: no significant social history Family history: no significant family history Medications and Allergies Allergies Allergy/AdvReac Type Severity Reaction Status Date / Time No Known Allergies Allergy Verified 01/31/19 22:30 Home Medications Medication Instructions Recorded Confirmed Last Taken Type Albuterol 0.63% NEBS 2 puff 01/22/21 Unknown History Triny Allergy 60 mg 01/22/21 Unknown History Apixaban [Eliquis] 5 mg PO BID #60 tablet 01/22/21 Unknown Rx Aspirin 81 mg 01/22/21 Unknown History Fluticasone [Flonase] 1 spray NS QDAY 01/22/21 01/22/21 Unknown History Hydrochlorothiazide 25 mg 01/22/21 Unknown History Metoprolol Tartrate 50 mg 01/22/21 Unknown History Procardia Xl 60 mg 01/22/21 Unknown History glipiZIDE 5 mg 01/22/21 Unknown History Active Meds: Active Medications Acetaminophen (Acetaminophen 325 Mg Tab) 650 mg PO Q4H PRN PRN Reason: Pain MILD(1-3)/Fever >100.5/PATHAK Apixaban (Apixaban 5 Mg Tab) 5 mg PO Q12HR ETHEL; Protocol Dextrose (Dextrose 50% In Water (25gm) 50 Ml Syringe) 50 ml IV Q30MIN PRN; Protocol PRN Reason: Hypoglycemia Insulin Human Lispro (Insulin Lispro 100 Unit/Ml) 0 unit SUB-Q ACHS ETHEL; Protocol Magnesium Hydroxide (Magnesium Hydroxide (Mom) Oral Liqd Udc) 30 ml PO Q4H PRN PRN Reason: Constipation Morphine Sulfate (Morphine 2 Mg/1 Ml Inj) 2 mg IV Q4H PRN PRN Reason: Pain, Moderate (4-6) Morphine Sulfate (Morphine 4 Mg/1 Ml Inj) 4 mg IV Q4H PRN PRN Reason: Pain , Severe (7-10) Nitroglycerin (Nitroglycerin 0.4 Mg Tab Subl) 0.4 mg SL Q5M PRN PRN Reason: Chest Pain Ondansetron HCl (Ondansetron 4 Mg/2 Ml Inj) 4 mg IV Q8H PRN PRN Reason: Nausea And Vomiting Sodium Chloride (Sodium Chloride 0.9% 10 Ml Flush Syringe) 10 ml IV BID ETHEL Sodium Chloride (Sodium Chloride 0.9% 10 Ml Flush Syringe) 10 ml IV PRN PRN PRN Reason: LINE FLUSH Tramadol HCl (Tramadol 50 Mg Tab) 50 mg PO Q6H PRN PRN Reason: Pain, Moderate (4-6) Review of Systems Cardiovascular: palpitations, rapid/irregular heart beat, lightheadedness, no chest pain, no orthopnea, no edema, no syncope, no shortness of breath Physical Examination Vital Signs Temp Pulse Resp BP Pulse Ox 99.3 F 79 18 169/113 96 01/23/21 23:19 01/23/21 23:19 01/23/21 23:19 01/23/21 23:19 01/23/21 23:19 General appearance: no acute distress HEENT: Positive: PERRL Neck: Positive: neck supple Cardiac: Positive: irregularly irregular Lungs: Positive: clear to auscultation Neuro: Positive: Grossly Intact Abdomen: Positive: Soft Female genitourinary: deferred Skin: Positive: Clear Extremities: Absent: edema Results 01/24/21 07:54 01/24/21 07:54 Cardiac Enzymes 01/24/21 Range/Units 01: AST 18 (5-40) units/L CBC 01/24/21 01/24/21 Range/Units 01:29 07:54 WBC 8.7 6.3 (4.5-11.0) K/mm3 RBC 4.60 4.54 (3.65-5.03) M/mm3 Hgb 12.8 12.8 (10.1-14.3) gm/dl Hct 39.1 38.8 (30.3-42.9) % Plt Count 364 318 (140-440) K/mm3 Lymph # (Auto) 4.0 2.5 (1.2-5.4) K/mm3 [place] # (Auto) 0.5 0.4 (0.0-0.8) K/mm3 Eos # (Auto) 0.1 0.1 (0.0-0.4) K/mm3 Baso # (Auto) 0.1 0.0 (0.0-0.1) K/mm3 Comprehensive Metabolic Panel 01/24/21 01/24/21 Range/Units 01:29 07:54 Sodium 142 141 (137-145) mmol/L Potassium 4.3 3.9 (3.6-5.0) mmol/L Chloride 106.2 104.9 (98-107) mmol/L Carbon Dioxide 24 26 (22-30) mmol/L BUN 13 12 (7-17) mg/dL Creatinine 0.7 0.6 (0.6-1.2) mg/dL Glucose 124 H 125 H (65-100) mg/dL Calcium 10.2 9.8 (8.4-10.2) mg/dL AST 18 (5-40) units/L ALT 21 (7-56) units/L Alkaline Phosphatase 98 (35-129) units/L Total Protein 7.5 (6.3-8.2) g/dL Albumin 4.6 (3.9-5) g/dL EKG interpretations - Telemetry EKG Rhythm: Atrial Fibrillation Assessment and Plan - Patient Problems (1) Paroxysmal atrial fibrillation Current Visit: Yes Status: Acute Plan to address problem: Patient has palpitations due to paroxysmal atrial fibrillation. Recent outpatient cardiac work-up including echocardiogram and thallium stress test were negative. Atrial fibrillation has been recurrent despite metoprolol therapy. We will initiate amiodarone for more optimal atrial fibrillation suppression. We will also start the patient on oral anticoagulation therapy with Eliquis. If atrial fibrillation persists despite amiodarone therapy, patient may need DC cardioversion.
[2021-01-24] MEDS: INSULIN LISPRO 100 UNIT/ML SUB-Q SCH ×3 (12:08→22:50)
[2021-01-24] MEDS ORDERED: HEPARIN 5,000 UNIT/1 ML VIAL SUB-Q SCH (14:00)
[2021-01-24] MEDS: APIXABAN 5 MG TAB PO SCH ×2 (22:50)
[2021-01-24] MEDS: AMIODARONE 200 MG TAB PO SCH (22:50)
[2021-01-25 06:19] LABS: INR 1.15 (0.87-1.13)
[2021-01-25 06:29] LABS: Blood Urea Nitrogen 18 mg/dL (7-17); Calcium 8.9 mg/dL (8.4-10.2); Hemolysis Index 3
[2021-01-25 06:36] LABS: BUN/Creatinine Ratio 26
--- NOTE | 2021-01-25 07:32 | Event Note ---
Date: 01/24/21 Patient started on IV amiodarone and oral Eliquis for paroxysmal atrial fibrillation Recent stress test was negative If heart rate is controlled patient can be discharged on oral amiodarone and oral Eliquis No need for Lexiscan
[2021-01-25] MEDS: INSULIN LISPRO 100 UNIT/ML SUB-Q SCH ×4 (08:06→22:07)
[2021-01-25] MEDS ORDERED: ASPIRIN EC 325 MG TAB PO SCH (10:00)
[2021-01-25] MEDS: APIXABAN 5 MG TAB PO SCH ×2 (10:05→21:14)
[2021-01-25] MEDS: AMIODARONE 200 MG TAB PO SCH ×2 (10:05→20:08)
[2021-01-25] MEDS: ASPIRIN EC 81 MG TAB PO SCH (10:06)
--- NOTE | 2021-01-25 10:37 | Progress Note ---
Assessment and Plan 1. Paroxysmal atrial fibrillation 2. Essential hypertension 3. Type 2 diabetes mellitus TSH normal Plan. Patient is currently stable heart rhythm however remains in atrial fibrillation with a rapid ventricular response. Patient's amiodarone will be increased to 400 mg twice a day we will add metoprolol 25 mg twice a day Subjective Date of service: 01/25/21 Interval history: No cardiac symptoms Objective Vital Signs Temp Pulse Pulse Pulse Resp BP Pulse Ox 01/25/21 07:49 98.7 F 78 18 134/91 98 01/25/21 05:59 98.8 F 87 18 142/81 99 01/25/21 00:17 98.3 F 88 18 124/78 98 01/24/21 23:00 88 01/24/21 22:00 77 77 18 99 01/24/21 20:56 97.8 F 77 18 134/95 99 01/24/21 16:34 98.5 F 106 H 20 150/95 98 01/24/21 16:00 128/65 100 01/24/21 15:50 128/65 100 01/24/21 15:40 128/65 100 01/24/21 15:30 128/65 100 01/24/21 15:20 128/65 100 01/24/21 15:10 128/65 99 01/24/21 15:00 128/65 100 01/24/21 14:46 103 H 17 176/150 100 01/24/21 14:32 139 H 176/150 100 01/24/21 14:16 117 H 18 176/150 99 01/24/21 14:00 97 H 14 176/150 99 01/24/21 13:46 91 H 15 176/150 98 01/24/21 13:30 102 H 20 176/150 99 01/24/21 13:16 112 H 14 176/150 100 01/24/21 13:00 118 H 17 176/150 100 01/24/21 12:46 111 H 13 126/79 100 01/24/21 12:30 130 H 14 126/79 100 01/24/21 12:16 117 H 14 126/79 99 01/24/21 12:00 110 H 18 126/79 100 01/24/21 11:46 84 13 126/69 100 01/24/21 11:30 114 H 15 145/94 100 01/24/21 11:16 73 13 145/94 100 01/24/21 11:00 78 14 126/69 99 01/24/21 10:46 114 H 15 145/94 100 - Physical Examination HEENT: Positive: PERRL Neck: Positive: neck supple Cardiac: Positive: Irregularly Regular, S1/S2, S3, PMI, Laterally Displaced Lungs: Positive: clear to auscultation, No Wheeze, Rales, Rhonchi Neuro: Positive: Grossly Intact Abdomen: Positive: Soft Skin: Positive: Clear Extremities: Absent: edema - Labs and Meds Coagulation 01/24/21 01/25/21 Range/Units 10:19 04:45 PT 15.2 H (12.2-14.9) Sec. INR 1.15 H (0.87-1.13) APTT 29.8 (24.2-36.6) Sec. Comprehensive Metabolic Panel 01/25/21 Range/Units 04:45 Sodium 142 (137-145) mmol/L Potassium 3.7 (3.6-5.0) mmol/L Chloride 106.3 (98-107) mmol/L Carbon Dioxide 16 L D (22-30) mmol/L BUN 18 H (7-17) mg/dL Creatinine 0.7 (0.6-1.2) mg/dL Glucose 143 H (65-100) mg/dL Calcium 8.9 (8.4-10.2) mg/dL
[2021-01-25] MEDS: METOPROLOL TARTRATE 50 MG TAB PO SCH ×2 (14:20→21:14)
--- NOTE | 2021-01-25 15:08 | Progress Note ---
Assessment and Plan (1) Chest pain Current Visit: Yes Status: Acute Qualifiers: Chest pain type: unspecified Qualified Code(s): R07.9 - Chest pain, unspecified Plan to address problem: Patient admitted and placed on telemetry. Chest pain probably is secondary to the palpitations. We will check serial cardiac enzymes. We will place on daily aspirin. Will await further evaluation by cardiology. (2) A-fib Current Visit: Yes Status: Acute Qualifiers: Atrial fibrillation type: unspecified Qualified Code(s): I48.91 - Unspecified atrial fibrillation Plan to address problem: Patient recently diagnosed with A. fib. Patient currently on beta-ryne and anticoagulation with Eliquis. Await further evaluation by second baller. (3) Diabetes mellitus Current Visit: Yes Status: Acute Plan to address problem: We will monitor Accu-Cheks closely. (4) DVT prophylaxis Current Visit: Yes Status: Acute Plan to address problem: Patient currently on anticoagulation with Eliquis. (5) Full code status Current Visit: Yes Status: Acute Plan to address problem: Patient is full code. Daily clinical course: 01/25/31: Patient is currently stable heart rhythm however remains in atrial fibrillation with a rapid ventricular response. Patient's amiodarone will be increased to 400 mg twice a day we will add metoprolol 25 mg twice a day Subjective Date of service: 01/25/21 Objective - Constitutional Vitals: Vital Signs - 12hr 01/25/21 01/25/21 01/25/21 05:59 07:00 07:49 Temperature 98.8 F 98.7 F Pulse Rate 87 102 H 78 Respiratory 18 18 Rate Blood Pressure 142/81 134/91 O2 Sat by Pulse 99 98 Oximetry 01/25/21 11:19 Temperature 98.0 F Pulse Rate 102 H Respiratory 18 Rate Blood Pressure 143/82 O2 Sat by Pulse 99 Oximetry - Labs CBC & Chem 7: 01/24/21 07:54 01/25/21 04:45 Labs: Abnormal lab results 01/24/21 01/25/21 01/25/21 Range/Units 22:05 04:45 04:45 PT 15.2 H (12.2-14.9) Sec. INR 1.15 H (0.87-1.13) Carbon Dioxide 16 L D (22-30) mmol/L BUN 18 H (7-17) mg/dL Glucose 143 H (65-100) mg/dL POC Glucose 141 H (70-105) mg/dL 01/25/21 01/25/21 Range/Units 07:49 11:24 PT (12.2-14.9) Sec. INR (0.87-1.13) Carbon Dioxide (22-30) mmol/L BUN (7-17) mg/dL Glucose (65-100) mg/dL POC Glucose 122 H 173 H (70-105) mg/dL HEART Score - HEART Score EKG: Non-specific Age: > 65 Risk factors: > 3 risk factors or hx of atherosclerotic disease Troponin: Troponin T < 0.010 ng/mL (0.00-0.029) 01/24/21 13:51 Troponin: < normal limit
[2021-01-25] MEDS ORDERED: AMIODARONE 200 MG TAB PO SCH (22:00)
[2021-01-26 06:26] LABS: Hematocrit 36.3 % (30.3-42.9); Hemoglobin 11.9 gm/dl (10.1-14.3); Mean Corpuscular HGB Conc 33 % (30-34); Mean Corpuscular Volume 86 fl (79-97); Platelet Count 289 K/mm3 (140-440); Red Blood Count 4.24 M/mm3 (3.65-5.03); Red Cell Distribution Width 13.5 % (13.2-15.2)
--- NOTE | 2021-01-26 09:49 | Progress Note ---
Assessment and Plan 1. Paroxysmal atrial fibrillation converted into sinus rhythm 2. Essential hypertension 3. Type 2 diabetes mellitus TSH normal Plan. Patient is currently in a stable sinus rhythm. Amiodarone will be decreased back to 200 mg twice a day we will continue Metoprolol 25 mg twice a day Subjective Date of service: 01/26/21 Interval history: Patient is stable and she denies any cardiac symptoms. Telemetry rhythm strips show patient converted to sinus rhythm and is stable Objective Vital Signs Temp Pulse Resp BP Pulse Ox 01/26/21 08:04 98.1 F 63 18 119/76 100 01/26/21 03:40 97.8 F 60 18 142/81 97 01/26/21 00:31 98.6 F 59 L 18 105/61 100 01/26/21 00:00 81 01/25/21 22:00 98 01/25/21 19:17 98.5 F 77 18 139/94 98 01/25/21 16:13 98.7 F 75 18 140/95 98 01/25/21 15:00 113 H 01/25/21 14:20 99 H 01/25/21 11:19 98.0 F 102 H 18 143/82 99 01/25/21 10:00 98 - Physical Examination General: Appears Well, No Apparent Distress HEENT: Positive: PERRL Neck: Positive: neck supple Cardiac: Positive: Regular Rate, S1/S2, PMI, Dilated, Laterally Displaced. Negative: S3, S4 Lungs: Positive: Normal Breath Sounds, No Wheeze, Rales, Rhonchi Neuro: Positive: Grossly Intact Abdomen: Positive: Soft Skin: Positive: Clear Extremities: Absent: edema - Labs and Meds CBC 01/26/21 Range/Units 05:27 WBC 6.6 (4.5-11.0) K/mm3 RBC 4.24 (3.65-5.03) M/mm3 Hgb 11.9 (10.1-14.3) gm/dl Hct 36.3 (30.3-42.9) % Plt Count 289 (140-440) K/mm3
[2021-01-26] MEDS: INSULIN LISPRO 100 UNIT/ML SUB-Q SCH ×4 (11:26→22:21)
[2021-01-26] MEDS: METOPROLOL TARTRATE 50 MG TAB PO SCH ×2 (11:43→22:20)
[2021-01-26] MEDS: ASPIRIN EC 81 MG TAB PO SCH (11:43)
[2021-01-26] MEDS: AMIODARONE 200 MG TAB PO SCH ×2 (11:44→22:19)
[2021-01-26] MEDS: APIXABAN 5 MG TAB PO SCH ×2 (11:44→22:20)
--- NOTE | 2021-01-26 12:03 | Progress Note ---
Assessment and Plan (1) Chest pain Current Visit: Yes Status: Acute Qualifiers: Chest pain type: unspecified Qualified Code(s): R07.9 - Chest pain, unspecified Plan to address problem: Patient admitted and placed on telemetry. Chest pain probably is secondary to the palpitations. We will check serial cardiac enzymes. We will place on daily aspirin. Will await further evaluation by cardiology. (2) A-fib Current Visit: Yes Status: Acute Qualifiers: Atrial fibrillation type: unspecified Qualified Code(s): I48.91 - Unspecified atrial fibrillation Plan to address problem: Patient recently diagnosed with A. fib. Patient currently on beta-ryne and anticoagulation with Eliquis. Await further evaluation by student development advisor. (3) Diabetes mellitus Current Visit: Yes Status: Acute Plan to address problem: We will monitor Accu-Cheks closely. (4) DVT prophylaxis Current Visit: Yes Status: Acute Plan to address problem: Patient currently on anticoagulation with Eliquis. (5) Full code status Current Visit: Yes Status: Acute Plan to address problem: Patient is full code. Daily clinical course: 01/25/31: Patient is currently stable heart rhythm however remains in atrial fibrillation with a rapid ventricular response. Patient's amiodarone will be increased to 400 mg twice a day we will add metoprolol 25 mg twice a day 01/26/21: Amiodarone will be decreased back to 200 mg twice a day we will continue Metoprolol 25 mg twice a day. If clinically stable, possible discharge tomorrow Subjective Date of service: 01/26/21 Objective - Constitutional Vitals: Vital Signs - 12hr 01/26/21 01/26/21 01/26/21 00:31 03:40 08:04 Temperature 98.6 F 97.8 F 98.1 F Pulse Rate 59 L 60 63 Respiratory 18 18 18 Rate Blood Pressure 105/61 142/81 119/76 O2 Sat by Pulse 100 97 100 Oximetry 01/26/21 11:43 Temperature Pulse Rate 71 Respiratory Rate Blood Pressure O2 Sat by Pulse Oximetry - Labs CBC & Chem 7: 01/26/21 05:27 01/25/21 04:45 Labs: Abnormal lab results 01/25/21 01/26/21 01/26/21 Range/Units 22:09 07:59 11:49 POC Glucose 141 H 138 H 111 H (70-105) mg/dL HEART Score - HEART Score EKG: Non-specific Age: > 65 Risk factors: > 3 risk factors or hx of atherosclerotic disease Troponin: Troponin T < 0.010 ng/mL (0.00-0.029) 01/24/21 13:51 Troponin: < normal limit
[2021-01-27] MEDS: INSULIN LISPRO 100 UNIT/ML SUB-Q SCH ×2 (08:02→11:34)
[2021-01-27 08:49] VITALS: BP 154/79
[2021-01-27] MEDS: APIXABAN 5 MG TAB PO SCH (11:01)
[2021-01-27] MEDS: AMIODARONE 200 MG TAB PO SCH (11:01)
[2021-01-27] MEDS: METOPROLOL TARTRATE 50 MG TAB PO SCH (11:01)
[2021-01-27] MEDS: ASPIRIN EC 81 MG TAB PO SCH (11:01)
[2021-01-27 11:15] LABS: BUN/Creatinine Ratio 16; Blood Urea Nitrogen 11 mg/dL (7-17); Calcium 8.8 mg/dL (8.4-10.2); Hemolysis Index 42
--- NOTE | 2021-01-27 13:33 | Progress Note ---
Assessment and Plan - Patient Problems (1) Paroxysmal atrial fibrillation Current Visit: Yes Status: Acute Plan to address problem: Patient presented with palpitations due to paroxysmal atrial fibrillation. Now in stable sinus rhythm on amiodarone and metoprolol. Continue the patient on oral anticoagulation therapy with Eliquis. Otherwise, stable for cardiac discharge. (2) Maculopapular rash Current Visit: Yes Status: Acute Plan to address problem: We will defer further evaluation of the left shoulder rash to the internal medicine service, patient likely needs an evaluation for possible herpes zoster. Subjective Date of service: 01/27/21 Interval history: The patient looks and feels comfortable, no cardiac complaints. She has returned to a stable sinus rhythm on amiodarone, metoprolol and is tolerating oral anticoagulation with Eliquis. Her major complaint today is some discomfort and itching around the right shoulder. There is evidence of a maculopapular rash over the area. Objective Vital Signs Temp Pulse Resp BP Pulse Ox 01/27/21 07:47 97.7 F 60 18 154/79 99 01/27/21 03:45 98.3 F 57 L 16 146/81 100 01/27/21 00:00 55 L 01/26/21 23:48 97.5 F L 60 18 158/83 98 01/26/21 22:20 63 155/86 01/26/21 22:00 100 01/26/21 19:28 98.2 F 63 14 155/86 100 01/26/21 16:21 97.7 F 59 L 18 162/87 100 01/26/21 16:19 97.7 F 61 18 165/77 99 01/26/21 16:00 61 - Physical Examination General: Appears Well, No Apparent Distress HEENT: Positive: PERRL Neck: Positive: neck supple Cardiac: Positive: Reg Rate and Rhythm Lungs: Positive: Decreased Breath Sounds Neuro: Positive: Grossly Intact Abdomen: Positive: Soft Skin: Positive: Clear, Rash (Maculopapular rash over the left shoulder) Extremities: Absent: edema - Labs and Meds Comprehensive Metabolic Panel 01/27/21 01/27/21 Range/Units 04:58 10:30 Sodium 142 (137-145) mmol/L Potassium 3.9 (3.6-5.0) mmol/L Chloride 105.9 (98-107) mmol/L Carbon Dioxide 20 L (22-30) mmol/L BUN 11 (7-17) mg/dL Creatinine 0.8 0.7 (0.6-1.2) mg/dL Glucose 167 H (65-100) mg/dL Calcium 8.8 (8.4-10.2) mg/dL
--- NOTE | 2021-01-27 14:44 | Electrocardiograph Report ---
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
--- NOTE | 2021-01-27 15:31 | Discharge Summary ---
Providers - Providers Date of Admission: 01/24/21 14:00 Date of discharge: 01/27/21 Attending physician: RY CONKLIN 01/24/21 Consult to Cardiac Rehabilitation [CONS] Routine Reason For Exam: Phase I 01/24/21 07:40 Consult to Cardiology [CONS] Routine Consulting Provider: AP RODRIGUEZ Reason For Exam: CHEST PAIN, AFIB Consult to Dietitian/Nutrition [CONS] Routine Physician Instructions: Reason For Exam: Reason for Consult: Diet education Primary care physician: INSPECTOR TOOL Hospitalization Condition: Critical Disposition: 01 HOME / SELF CARE / HOMELESS Final Discharge Diagnosis (Prints w/discharge instructions): (1) Paroxysmal atrial fibrillation. (2) Maculopapular rash Time spent for discharge: 34 minutes Core Measure Documentation - Palliative Care Palliative Care/ Comfort Measures: Not Applicable - Core Measures Any of the following diagnoses?: none Exam - Constitutional Vitals: Temp Pulse Resp BP Pulse Ox 97.7 F 60 18 154/79 100 01/27/21 07:47 01/27/21 07:47 01/27/21 07:47 01/27/21 07:47 01/27/21 10:00 Plan Activity: advance as tolerated Weight Bearing Status: Non-Weight Bearing Diet: low fat, low salt Follow up with: PRIMARY MD FRANCESCO [Primary Care Provider] - 3-5 Days CANDIDO HATFIELD MD [Staff Physician] - 7 Days Prescriptions: Amiodarone [Cordarone 200 MG TAB] 200 mg PO BID #60 tablet Apixaban [Eliquis] 5 mg PO Q12HR #60 tablet Metoprolol [Lopressor TAB] 50 mg PO BID #60 tablet
--- NOTE | 2021-01-28 11:03 | Electrocardiograph Report ---
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
== END 2021-01-27 16:34 | disposition home health service (06) | DRG 310 ==
LOC: ED 23:01 → 4A 01-24 04:43 → OBSVTOIN 01-24 14:00 → 4A 01-24 14:20
PROVIDERS: ADMIT Internal Medicine Geriatric Medicine; ATTEND Internal Medicine
DX: I48.0 Paroxysmal atrial fibrillation (principal); I10 Essential (primary) hypertension; R21 Rash and other nonspecific skin eruption; E11.9 Type 2 diabetes mellitus without complications; Z79.01 Long term (current) use of anticoagulants; Z79.899 Other long term (current) drug therapy
CPT/HCPCS: 36415; 71045; 80048; 80053; 82565; 82962; 83880; 84443; 84484; 85025; 85027; 85610; 85730; 93005; 99284; G0378; J0282; J1815

== ENCOUNTER 2021-07-25 15:40 | Emergency (ER) | payer BC, MEDICARE ==
--- NOTE | 2021-07-25 21:06 | Emergency Department Report ---
ED Lower Extremity HPI - General Chief Complaint: Extremity Injury, Lower Stated Complaint: FOOT PAIN Source: patient Mode of arrival: Wheelchair Limitations: No Limitations - History of Present Illness Initial Comments: 71-year-old female presents to the ED complaining about of right knee pain after slipping falling from the second step of stairs to the floor. Patient states t hat she is unable to bear weight. Mild edema noted to the right knee. Unable to fully extend right knee without pain. No obvious distracting injury noted. No obvious deformity noted. Patient states pain is currently 8 out of 10. Patient states prior to arrival she applied ice with relief. No acute distress noted no ill appearance noted. -: This afternoon Injury: Knee: Right Place: home Severity scale (0 -10): 8 Improves With: cold therapy Worsens With: movement Context: fall Associated Symptoms: swelling Treatments Prior to Arrival: cold therapy - Related Data Home Medications Medication Instructions Recorded Confirmed Last Taken glipiZIDE [Glucotrol] 5 mg PO BID 01/24/21 01/24/21 Unknown Previous Rx's Medication Instructions Recorded Last Taken Type Amiodarone [Cordarone 200 MG TAB] 200 mg PO BID #60 tablet 01/27/21 Unknown Rx Apixaban [Eliquis] 5 mg PO Q12HR #60 tablet 01/27/21 Unknown Rx Metoprolol [Lopressor TAB] 50 mg PO BID #60 tablet 01/27/21 Unknown Rx Allergies Allergy/AdvReac Type Severity Reaction Status Date / Time No Known Allergies Allergy Verified 01/31/19 22:30 ED Review of Systems ROS: Stated complaint: FOOT PAIN Other details as noted in HPI Constitutional: denies: chills, fever Eyes: denies: eye pain, eye discharge, vision change ENT: denies: ear pain, throat pain Respiratory: denies: cough, shortness of breath, wheezing Cardiovascular: denies: chest pain, palpitations Endocrine: no symptoms reported Gastrointestinal: denies: abdominal pain, nausea, diarrhea Genitourinary: denies: urgency, dysuria, discharge Musculoskeletal: joint swelling. denies: back pain, arthralgia Skin: denies: rash, lesions Neurological: denies: headache, weakness, paresthesias Psychiatric: denies: anxiety, depression Hematological/Lymphatic: denies: easy bleeding, easy bruising ED Past Medical Hx - Past Medical History Hx Hypertension: Yes Hx Diabetes: Yes - Social History Smoking Status: Never Smoker - Medications Home Medications: Home Medications Medication Instructions Recorded Confirmed Last Taken Type glipiZIDE [Glucotrol] 5 mg PO BID 01/24/21 01/24/21 Unknown History Amiodarone [Cordarone 200 MG TAB] 200 mg PO BID #60 tablet 01/27/21 Unknown Rx Apixaban [Eliquis] 5 mg PO Q12HR #60 tablet 01/27/21 Unknown Rx Metoprolol [Lopressor TAB] 50 mg PO BID #60 tablet 01/27/21 Unknown Rx ED Physical Exam - General Limitations: No Limitations General appearance: alert, in no apparent distress - Head Head exam: Present: atraumatic, normocephalic - Eye Eye exam: Present: normal appearance - ENT ENT exam: Present: mucous membranes moist - Neck Neck exam: Present: normal inspection - Respiratory Respiratory exam: Present: normal lung sounds bilaterally. Absent: respiratory distress - Cardiovascular Cardiovascular Exam: Present: regular rate, normal rhythm. Absent: systolic murmur, diastolic murmur, rubs, gallop - GI/Abdominal GI/Abdominal exam: Present: soft, normal bowel sounds - Extremities Exam Extremities exam: Present: normal inspection - Expanded Lower Extremity Exam Right Knee exam: Present: tenderness, swelling - Back Exam Back exam: Present: normal inspection - Neurological Exam Neurological exam: Present: alert, oriented X3 - Psychiatric Psychiatric exam: Present: normal affect, normal mood - Skin Skin exam: Present: warm, dry, intact, normal color. Absent: rash ED Course Vital Signs 07/25/21 16:14 Temperature 98.4 F Pulse Rate 70 Respiratory 18 Rate Blood Pressure 112/70 [Right] O2 Sat by Pulse 97 Oximetry ED Lower Extremity MDM - Radiology Data [facility] [address] [place] [address] XRay Report Signed Patient: CHAD GARRIDO MR#: [id number] : 1950 Acct:[id number] Age/Sex: 71 / F ADM Date: 07/25/21 Loc: ED Attending Dr: Ordering Physician: DELMA BROWN Date of Service: 07/25/21 Procedure(s): XR knee 3V LT Accession Number(s): [id number] cc: DELMA BROWN Fluoro Time In Minutes: LEFT KNEE 3 VIEW(S) INDICATION / CLINICAL INFORMATION: fall knee pain COMPARISON: None available. FINDINGS: BONES / JOINT(S): No acute fracture or subluxation. Mild degenerative arthrosis medial femoral tibial and patellofemoral compartments SOFT TISSUES: Moderate knee effusion. ADDITIONAL FINDINGS: None. IMPRESSION: 1. 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 2. No fracture. Signer Name: Holden Angel MD Signed: 07/25/2021 9:58 PM Workstation Name: [id number] Transcribed By: TL Dictated By: Holden Angel MD Electronically Authenticated By: Holden Angel MD Signed Date/Time: 07/25/212157 DD/ 56 TD/TT: - Medical Decision Making 71-year-old female presents to the ED complaining about of right knee pain after slipping falling from the second step of stairs to the floor. Patient states that she is unable to bear weight. Mild edema noted to the right knee. Unable to fully extend right knee without pain. No obvious distracting injury noted. No obvious deformity noted. Patient states pain is currently 8 out of 10. Patient states prior to arrival she applied ice with relief. No acute distress noted no ill appearance noted. X-ray to 3 view show1. 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 No acute fracture. Patient will have Ronny wrap and will follow with orthopedic. Rechecked the patient is resting quietly quietly and comfortable and feeling better. I discussed the results of diagnostic study, my clinical impression and the plan for further treatment with the patient. Patient agrees with plan and discharge at this present time. All question addressed. I have given the patient instruction regarding a diagnosis ,expectation ,follow- up and return precaution. I explained to the patient that emergent condition may arise and to return to the ED for new worsen and any new persisting condition. I have explained the importance of following up with the primary care physician or referral physician listed below has instructed. The patient verbalized understanding of discharge instruction. Critical care attestation.: If time is entered above; I have spent that time in minutes in the direct care of this critically ill patient, excluding procedure time. ED Disposition Clinical Impression: Knee effusion, right Disposition: HOME / SELF CARE / HOMELESS Is pt being admited?: No Does the pt Need Aspirin: No Condition: Stable Instructions: Knee Effusion, [id number] Additional Instructions: Take medication as prescribed Follow-up with orthopedic Return to ED for worsening symptom Referrals: PRIMARY CARE, [Primary Care Provider] - 3-5 Days SANDOVAL ODONNELL MD [Staff Physician] - 3-5 Days
--- NOTE | 2021-07-25 22:03 | XRay Report ---
LEFT KNEE 3 VIEW(S) INDICATION / CLINICAL INFORMATION: fall knee pain COMPARISON: None available. FINDINGS: BONES / JOINT(S): No acute fracture or subluxation. Mild degenerative arthrosis medial femoral tibial and patellofemoral compartments SOFT TISSUES: Moderate knee effusion. ADDITIONAL FINDINGS: None. IMPRESSION: 1. 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 2. No fracture. Signer Name: Holden Angel MD Signed: 07/25/2021 9:58 PM Workstation Name: [id number]
[2021-07-25 22:42] VITALS: BP 116/74
== END 2021-07-25 22:41 | disposition home or self-care (01) ==
LOC: ED 15:40
DX: M25.461 Effusion, right knee (principal); I10 Essential (primary) hypertension; E11.9 Type 2 diabetes mellitus without complications; Z98.890 Other specified postprocedural states; W10.8XXA Fall (on) (from) other stairs and steps, initial encounter; Y93.89 Activity, other specified; Y92.89 Other specified places as the place of occurrence of the external cause; Y99.8 Other external cause status
CPT/HCPCS: 99283

== ENCOUNTER 2021-10-05 17:50 | Emergency (ER) | payer BC, MEDICARE ==
--- NOTE | 2021-10-06 02:43 | Emergency Department Report ---
ED Rash HPI - HPI Chief Complaint: Skin Rash Stated Complaint: RASH ON NECK AND CHEST Time Seen by Provider: 10/06/21 01:27 Duration: 2 Days Location: Chest Rash Symptoms: Yes Itching, Yes Malaise Severity: mild, moderate Other History: 71-year-old female with a past medical history of a shingles outbreak presents emergency department stating she is having other symptoms outbreak since the previous when she had about 2 years ago. The break is happening to the mid chest area with some erythema and vesicles that are tender and tingling to the touch states this is her usual place for transmission ED Review of Systems ROS: Stated complaint: RASH ON NECK AND CHEST Other details as noted in HPI Comment: All other systems reviewed and negative ED Past Medical Hx - Past Medical History Previous Medical History?: Yes Hx Hypertension: Yes Hx Diabetes: Yes - Surgical History Past Surgical History?: No - Social History Smoking Status: Never Smoker - Medications Home Medications: Home Medications Medication Instructions Recorded Confirmed Last Taken Type glipiZIDE [Glucotrol] 5 mg PO BID 01/24/21 01/24/21 Unknown History Amiodarone [Cordarone 200 MG TAB] 200 mg PO BID #60 tablet 01/27/21 Unknown Rx Apixaban [Eliquis] 5 mg PO Q12HR #60 tablet 01/27/21 Unknown Rx Metoprolol [Lopressor TAB] 50 mg PO BID #60 tablet 01/27/21 Unknown Rx Acyclovir [Zovirax Tab] 800 mg PO Q12H #40 10/06/21 Unknown Rx Rash Exam - Exam General: Vital signs noted. No distress. Alert and acting appropriately. HEENT: No Periorbital Edema, No Conjuctival Injection, No Chemosis, No Perioral Edema, No Tongue Edema, No Uvular Edema, No Compromised Airway, No Drooling Lungs: Yes Good Air Exchange (Normal Breath Sounds), No Wheezes, No Ronchi, No Stridor, No Cough, No Labored Respirations, No Retractions, No Use of Accessory Muscles, No Other Abnormal Lung Sounds Heart: Yes Regular, No Murmur Front/Back of Body, Lg (Color): 1 - Erythematous vesicular rash Skin: Yes Excoriations, Yes Weeping, Yes Erythema (Macular erythematous and acicular multiple sizes present) Other: Positive: Abdomen Normal, Neurologic Normal, Musculoskeletal Normal ED Course Vital Signs 10/05/21 18:12 Temperature 99.0 F Pulse Rate 66 Respiratory 16 Rate Blood Pressure 128/74 [Right] O2 Sat by Pulse 100 Oximetry Critical care attestation.: If time is entered above; I have spent that time in minutes in the direct care of this critically ill patient, excluding procedure time. ED Disposition Clinical Impression: Shingles Disposition: HOME / SELF CARE / HOMELESS Is pt being admited?: No Does the pt Need Aspirin: No Condition: Stable Instructions: Shingles, Viral Illness, Adult Prescriptions: Acyclovir [Zovirax Tab] 800 mg PO Q12H #40 Referrals: [facility] [Provider Group] - 3-5 Days
[2021-10-06 03:44] VITALS: BP 132/81
== END 2021-10-06 04:00 | disposition home or self-care (01) ==
LOC: ED 17:50
DX: B02.9 Zoster without complications (principal); I10 Essential (primary) hypertension; E11.9 Type 2 diabetes mellitus without complications
CPT/HCPCS: 99282

== ENCOUNTER 2022-01-15 10:24 | Outpatient (CLI) | payer MEDICARE | END 2022-01-15 10:25 | disposition home or self-care (01) | LOC: MAMMO 10:24 | PROVIDERS: ATTEND Family Medicine | DX: Z12.31 Encounter for screening mammogram for malignant neoplasm of breast (principal) | CPT/HCPCS: 77067 ==